=== PATIENT | male | born 2000 | race Two or more races ===

== ENCOUNTER 2024-05-09 09:00 | Emergency (ER) | payer BC, SELFPAY ==
[2024-05-09 09:03] VITALS: BP 146/99; PULSE 77; RESP 18; TEMP 36.4; O2SAT 100; BMI 26.6
[2024-05-09 09:14] VITALS: BP 140/91; PULSE 97; RESP 16; TEMP 36.6; O2SAT 99
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
[2024-05-09] MEDS: ACETAMINOPHEN 325 MG TABLET 650 MG PO (10:34)
[2024-05-09] MEDS: IBUPROFEN TAB 400 MG TABLET 800 MG PO (10:34)
[2024-05-09] MEDS: DIAZEPAM 5 MG TABLET PO (10:34)
[2024-05-09] MEDS: LIDOCAINE 5% 1 PATCH TOP (10:35)
[2024-05-09 10:50] VITALS: BP 144/85; PULSE 88; RESP 16; TEMP 36.7; O2SAT 99
== END 2024-05-09 10:50 | disposition home or self-care (01) ==
LOC: SERX 11:12
PROVIDERS: Emergency Provider Emergency Medicine
DX: M54.50 Low back pain, unspecified (principal); V47.5XXA Car driver injured in collision with fixed or stationary object in traffic accident, initial encounter; Y92.410 Unspecified street and highway as the place of occurrence of the external cause; Z87.891 Personal history of nicotine dependence
CPT/HCPCS: 99283; Z7610; A9270